=== PATIENT | male | born 1990 | race Caucasian/White ===

== ENCOUNTER 2016-10-24 12:56 | Inpatient (IN) | payer OTHER ==
[~2016-10-24] VITALS: Ht 180.3 cm; Wt 95.3 kg
[2016-10-24] MEDS ORDERED: MAG HYDROX/AL HYDROX/SIMETH 30 ML LIQUID UDC PO PRN (15:30)
[2016-10-24] MEDS ORDERED: BUPRENORPHINE HCL 2 MG TAB.SUBL SL PRN (15:30)
[2016-10-24] MEDS ORDERED: IBUPROFEN 600 MG TABLET PO PRN (15:30)
[2016-10-24] MEDS ORDERED: CLONIDINE HCL 0.1 MG TABLET PO PRN (15:30)
[2016-10-24] MEDS ORDERED: DICYCLOMINE HCL 20 MG TABLET PO PRN (15:30)
[2016-10-24] MEDS ORDERED: ONDANSETRON ODT 4 MG TAB.RAPDIS SL PRN (15:30)
[2016-10-24] MEDS ORDERED: HYDROXYZINE PAMOATE 25 MG CAPSULE PO PRN (15:30)
[2016-10-24] MEDS ORDERED: LORAZEPAM 2 MG/1 ML VIAL IM PRN (15:30)
[2016-10-24] MEDS ORDERED: DIAZEPAM 5 MG TABLET PO PRN (15:30)
[2016-10-24] MEDS ORDERED: ACETAMINOPHEN 325 MG TABLET PO PRN (15:30)
[2016-10-24] MEDS ORDERED: METHOCARBAMOL 750 MG TABLET PO PRN (15:30)
[2016-10-24] MEDS ORDERED: ONDANSETRON 4 MG/2 ML VIAL IM PRN (15:30)
[2016-10-24] MEDS ORDERED: MAGNESIUM HYDROXIDE 30 ML LIQUID UDC PO PRN (15:30)
[2016-10-24] MEDS ORDERED: LOPERAMIDE HCL 2 MG CAPSULE PO PRN ×2 (15:30)
[2016-10-24] MEDS ORDERED: MIRALAX 17 GM POWD.PACK PO PRN (15:30)
[2016-10-24] MEDS ORDERED: DIAZEPAM 10 MG TABLET PO PRN ×2 (15:30)
[2016-10-24 16:00] VITALS: BP 129/86
[2016-10-24 16:46] LABS: *AMPHETAMINE, URINE NEGATIVE (NEGATIVE); *BARBITURATE, URINE NEGATIVE (NEGATIVE); *CANNABINOID, URINE POSITIVE (NEGATIVE); *COCCAINE, URINE POSITIVE (NEGATIVE); *OPIATE, URINE POSITIVE (NEGATIVE); *PHENCYCLIDINE SCREEN,URINE NEGATIVE (NEGATIVE)
[2016-10-24 18:07] LABS: ALANINE AMINOTRANSFERASE 27 U/L (16-63); ALBUMIN 3.9 g/dL (3.4-5.0); ALKALINE PHOSPHATASE 68 U/L (50-136); ASPARTATE AMINOTRANSFERASE 19 U/L (15-37); BILIRUBIN,TOTAL 0.6 mg/dL (0.2-1.0); CALCIUM 8.9 mg/dL (8.5-10.1); CARBON DIOXIDE 25 mmol/L (21-32); CHLORIDE 103 mmol/L (98-107); CREATININE 1.1 mg/dL (0.6-1.3); GFR 82 mL/min (>60); GLUCOSE 118 mg/dL (74-106); MAGNESIUM 1.8 mg/dL (1.8-2.4); POTASSIUM 3.7 mmol/L (3.5-5.1); SODIUM SERUM 140 mmol/L (136-145); TOTAL PROTEIN, SERUM 7.6 g/dL (6.4-8.2); UREA NITROGEN, BLOOD 10 mg/dL (7-18)
[2016-10-24 18:08] LABS: BASOPHILS # (AUTO) 0.1 K/uL (0.0-0.2); BASOPHILS % (AUTO) 0.7 % (0.0-2.0); EOSINOPHILS # (AUTO) 0.1 K/uL (0.0-0.7); EOSINOPHILS % (AUTO) 1.9 % (0.0-7.0); HEMOGLOBIN 15.3 g/dL (14.0-18.0); LYMPHOCYTES # (AUTO) 2.2 K/uL (0.8-4.8); LYMPHOCYTES % (AUTO) 30.3 % (20.5-51.5); MEAN CORPUSCULAR HEMOGLOBIN 29.6 uug (27.0-31.0); MEAN CORPUSCULAR HGB CONC 34 g/dL (32.0-37.0); MEAN CORPUSCULAR VOLUME 87.4 fL (82.0-92.0); MONOCYTES # (AUTO) 0.7 K/uL (0.1-1.30); NEUTROPHILS # (AUTO) 4.2 K/uL (1.8-8.9); NEUTROPHILS % (AUTO) 58.1 % (38.5-71.5); PLATELET COUNT (AUTO) 199 K/uL (150-450); RED BLOOD CELL COUNT(AUTO) 5.15 MIL/uL (4.70-6.10); RED CELL DISTRIBUTION WIDTH 11.3 % (11.5-14.5); WHITE BLOOD COUNT (AUTO) 7.3 K/uL (4.0-11.2)
--- NOTE | 2016-10-24 18:13 | NUR ---
ADMISSION NOTE Pt is a 26 yr old male, AA&Ox4. Pt is presenting himself to [facility] for heroin and Xanax use. Pt was observed with flat affect and avoidant during assessment. Respirations even and unlabored. Lung sounds are clear. Body check was done. Skin is intact, warm and dry to touch. No tremor seen or felt. Pt denies any n/v. Pt did c/o muscle aching, runny nose and was observed yawning 2-3 time during assessment. Pt c/o cold chills. COWS upon admission was 7, CIWA score was 3. VS are WNL. BP 129/86, P 73, R 16, T 98.6, O2 99% at 1600. Pt is full code, regular diet and NKA. Pt denies any PMH and denies taking any home medication. Pt denies any PCP. Pt denies any Hx of Seizures. SUBSTANCE USE: 1. Heroin- Pt stated of first using Heroin at the age of 23 yrs old. Pt states of smoking 8 bags daily for the past 1.5 years. Last use was on 10/23/16, pt states of smoking 1 bag. 2. Xanax - pt stated of first using Xanax 2 months ago and has been using 6mg PO daily. Last use was on 10/23/16, used 2mg PO. 3. Marijuana - Pt states of first smoking marijuana 5 years ago. Pt states of smoking 1g daily for the past 5 years. Last smoked was on 10/23/16, per pt, smoked 1g. Pt's urine drug screen was positive for cocaine. Pt states of not using cocaine. Pt states, "The heroin was probably cut with it". MD is made aware. [place] Hx: Pt states of going to [facility] in January 2015 and was in for 30 days for Opiate use. Pt stated of being sober for 1 yrs then relapsed. Pt was seen and examined by Dr. Spivey with new orders to start on 5 day Subutex and 5 day Valium taper on 10/25/16. Pt was educated on medication regime and plan of care. Pt was oriented around unit and equipment in room. Pt is on fall and seizure precautions. All needs attended and met.
[2016-10-24 18:18] LABS: ETHANOL < 3 MG/DL (0-0)
[2016-10-24 18:46] LABS: HIV-1 p24 ANTIGEN NON REACTIVE (NONREACTIVE); HIV-1/2 ANTIBODY NON REACTIVE (NONREACTIVE)
[2016-10-24 18:47] LABS: THYROID STIMULATING HORMONE 0.396 mIU/mL (0.358-3.740)
[2016-10-24] MEDS ORDERED: BUPR1FIL SL (19:22)
--- NOTE | 2016-10-24 19:30 | NUR ---
START OF SHIFT Patient endorsed by day shift nurse. SBAR report received. Patient is 26 years old male admitted to [facility] on 10/24/16 for Benzo(Xanax PO) and Opioid(Heroin smoke) Dependence., placed on 5 day Subutex and 5 day Valium Taper that will initiated on 10/25/16. Patient is alert and oriented x4, cooperative. COWS 12. CIWA 9: Patient presents with obviously moderate objective signs of opioid withdrawal: appears anxious, nervousness, agitated, c/o bone and joint aching, sweating, "goose" skin, stomach cramping, nausea. Patient denied vomiting and diarrhea. Patient has tremors, that can felt. VS: T:98'6; HR:68; BP:119/79; Room Air O2Sat:98%; RR: 20. Generalized Pain level: 7/10. Breathing is even and unlabored. Patient denied SOB and chest pain. Lungs are clear bilaterally. Bowel Sounds is active in all x4 quadrants. Abdomen is soft and non-distended. Skin is intact, warm, and moist by touch. Patient remained compliant with medication, diet regime, and treatment plan. Patient will discharging 10/25/2016 at 0930. UDS test results placed in the chart. Safety measures on the place by hospital protocol: Call light within reach, bed in the lowest position and locked, bed rails up x2. Will continue to monitor.
[2016-10-24 20:00] VITALS: BP 119/79
[2016-10-24] MEDS ORDERED: DIAZEPAM 10 MG TABLET PO SCH (21:00)
[2016-10-24] MEDS: GABAPENTIN 300 MG CAPSULE PO SCH (21:27)
--- NOTE | 2016-10-24 21:35 | NUR ---
PRN SUBUTEX PO ADMINISTRATION Patient c/o increased anxiety.Upon assessment COWS 12: Patient presents with obviously moderate objective signs of opioid withdrawal appear anxious, nervousness, agitated, tremors, that can felt, bone and joint aching, sweating, "goose" skin, stomach cramping, nausea. Patient denied vomiting and diarrhea.VS: T:98'6; HR:68; BP:119/79; Room Air O2Sat:98%; RR: 20. Generalized Pain level: 7/10. PRN Subutex SL discussed with patient. Patient's educated for actions, adverse reactions, and side effects of the Subutex. Proper administration technique demonstrated to patient. Patient returned his knowledge back by verbalizing understanding. PRN Subutex SL was administrated as ordered. Patient tolerated well. Will re-evaluate in 1 hour. Safety measure in the place by hospital policy: Call light within reach; Bed locked and in the lowest position; bed rails up x2. Will continue to monitor closely.
[2016-10-24] MEDS: diphenhydrAMINE 50 MG CAPSULE PO PRN (22:20)
--- NOTE | 2016-10-24 22:20 | NUR ---
PRN BENADRYL ADMINISTRATION Patient c/o insomnia and asked for sleep aid. Patient's assessed. VS WNL. PRN Benadryl PO discussed with patient. Patient educated for actions, adverse reactions, and side effects of Benadryl. Patient returned his knowledge back by verbalizing understanding. PRN Benadryl was administrated as ordered with full glass of water. Patient tolerated well. All needs met. Safety measures in the place by hospital policy: call light within reach, bed in the lowest position and locked, bed rails up x2. Will re-evaluating patient in 1 hour.
--- NOTE | 2016-10-24 22:35 | NUR ---
RE-ASSESSMENT Patient's re-assessed. Patient said that"Subutex helps a lot", an he is feeling"much better now". COWS 9: patient feeling mild anxiety, denied N/V, and diarrhea, tremors that can felt, sweating, bone and joint aching decreased from 7/10 to 4/10, headache decreased from 7/10 to 3/10. RR: 17: Breathing unlabored and even. PRN Subutex was effective. Will continue to monitor closely. All needs met by hospital policy. Addendum: 10/25/16 at 0039 by SANDRA BOYKIN RN and
--- NOTE | 2016-10-24 23:20 | NUR ---
RE-ASSESSMENT Patient lying down in his bed, and "trying to sleep". Benadryl is not effective at this time.
[2016-10-25] VITALS: BP 127/79
[2016-10-25 04:00] VITALS: BP 120/76
--- NOTE | 2016-10-25 07:22 | NUR ---
END OF SHIFT NOTE Patient is a 21 years old male, admitted to [facility] on 10/24/2016 Benzo(Xanax PO) and Opioid (Heroin smoke) Dependence, placed on 5 day Subutex and 5 day Valium Taper that will initiated on 10/25/16. No SI/HI. CIWA decreased from " 9" on 10/24/16 at 20:00 to" 6" on 10/25/16 at 0400; COWS decreased from "12" on 10/24/16 at 20:00 to" 5" on 10/25/16 at 04:00 Patient presents with obviously moderate objective signs of opioid withdrawal: appears anxious, nervousness, agitated, c/o bone and joint aching, sweating, "goose" skin, stomach cramping, nausea. Patient denied vomiting and diarrhea. Patient has tremors, that can felt. VS WNL. PRN Subutex PO and PRN Benadryl PO were effective. Patient remained compliant with medications, diet regime, and treatment plan. Patient slept 6 hours; Intake 651ml, output x1. Safety measures on the place by hospital protocol: Call light within reach, bed in the lowest position and locked, bed rails up x2. Patient endorsed to day shift nurse in stable condition. SBAR Report given.
--- NOTE | 2016-10-25 07:40 | NUR ---
START OF SHIFT Pt is a 26 yr old male, AA&Ox3. Pt was admitted on 10/24/16 for Opiate/Benzo Dependence and is to start on 5 day Valium and 5 day Subutex taper as ordered. Pt denies any PMH. Pt is full code regular diet and NKA. Pt received Subutex PRN during the night. Medication was effective. Last COWS score was 5 and CIWA score was 4 at 0400. Pt remains in bed resting with respirations even and unlabored. No acute distress noted. Skin is intact, warm and dry to touch. No tremors seen or felt. Pt denies any n/v at this time. Pt is c/o generalized muscle aching. Encouraged increase fluid intake. Will f/u with eMAR. Safety precautions observed. Call light is within reach. Will continue to monitor.
[2016-10-25 08:00] VITALS: BP 102/51
[2016-10-25] MEDS ORDERED: 5 DAY TAPER VALIUM-SERENITY PROTOCOL PO PRN (09:00)
[2016-10-25] MEDS ORDERED: TUBERCULIN,PURIF.PROT.DERIV. 5 TU/0.1 ML TEST ID ONE (09:00)
[2016-10-25] MEDS ORDERED: 5 DAY TAPER BUPRENORPHINE -SERENITY PROTOCOL SL PRN (09:00)
[2016-10-25] MEDS: MULTIVITAMINS,THERAPEUTIC TABLET PO SCH (09:20)
[2016-10-25] MEDS: DIAZEPAM 10 MG TABLET PO SCH ×4 (09:20→21:17)
[2016-10-25] MEDS: GABAPENTIN 300 MG CAPSULE PO SCH ×2 (09:20→21:17)
[2016-10-25] MEDS: BUPRENORPHINE HCL 2 MG TAB.SUBL SL SCH ×4 (09:20→21:18)
[2016-10-25 12:00] VITALS: BP 119/75
--- NOTE | 2016-10-25 13:07 | NUR ---
MEDICATION REFUSED Pt refused to take Subutex 4mg SL at 1300 as scheduled. Pt was educated on medication regime. Pt was able to verbalize understanding but continued to refuse. MD is made aware.
[2016-10-25 16:00] VITALS: BP 130/76
--- NOTE | 2016-10-25 18:30 | NUR ---
END OF SHIFT Pt is a 26 yr old male, AA&Ox3. Pt was admitted on 10/24/16 for Opiate/Benzo Dependence and is to start on 5 day Valium and 5 day Subutex taper as ordered. Medication isidro well. Pt refused to take Subutex 4mg SL at 1200. Pt stated, "The dose is too much". Pt was requesting to decrease the taper. Dr. Spivey was made aware and will f/u. No PRN's were given during the day. Pt has been observed with anxiety m/b difficulty staying still. Skin is intact, warm and dry to touch. No tremors seen or felt. Pt denies any n/v at this time. Pt denies any pain or discomfort. Encouraged increase fluid intake. Last COWS score was 5, CIWA score was 4 at 1600. Safety precautions observed. Call light is within reach.
[2016-10-25 20:00] VITALS: BP 129/81
--- NOTE | 2016-10-25 20:00 | NUR ---
START OF SHIFT NOTE PATIENT PRESENTS IN FLAT AFFECT MOOD. ALERT AND ORIENTED X 4. RESPIRATION EVEN AND UNLABORED. PATIENT REPORTS ANXIETY, SWEATING. NOTED RESTLESS , YAWNING, NO N/V. AND MUSCLE ACHES. PATIENT IS A 26 YEAR OLD MALE, ADMITTED FOR OPIATE/BENZO DEPENDENCE. PATIENT IS ON 2ND DAY OF HIS 5 DAY SUBUTEX AND 5 DAY VALIUM TAPER. PATIENT IS FULL CODE, REGULAR DIET AND NO KNOWN ALLERGY. PER DAY SHIFT NURSE, PATIENT REFUSED SUBUTEX AT 1200 DOSE. PATIENT DID NOT REQUIRE ANY PRN MEDICATION. LAST COWS 5 AND CIWA 4. VS STABLE . ON FALL /SEIZURE PRECAUTION. SAFETY MEASURES IN PLACE. CALL LIGHT IN REACH. WILL CONTINUE TO MONITOR.
[2016-10-25] MEDS: diphenhydrAMINE 50 MG CAPSULE PO PRN (21:17)
--- NOTE | 2016-10-25 21:17 | NUR ---
PRN BENADRYL RE-ASSESSMENT PATIENT REQUESTS FOR SLEEP AID. PRN BENADRYL GIVEN. WILL MONITOR FOR EFFECTIVENESS
[2016-10-26] VITALS: BP 113/61
--- NOTE | 2016-10-26 07:29 | NUR ---
END OF SHIFT NOTE PATIENT ALERT AND ORIENTED X 4. RESPIRATION EVEN AND UNLABORED. PATIENT C/O OF ANXIETY, SWEATING, NOTED RESTLESS, YAWNING , TREMORS. PATIENT PRESENTS WITH FLAT MOOD AFFECT. PATIENT IS A 26 YEAR OLD MALE, ADMITTED FOR OPIATE/BENZO DEPENDENCE. PATIENT IS ON 2ND DAY OF HIS 5 DAY SUBUTEX AND 5 DAY VALIUM TAPER. PATIENT IS FULL CODE, REGULAR DIET AND NO KNOWN ALLERGY. . PATIENT COMPLIANT WITH ALL MEDICATIONS AND TREATMENT PLAN . PATIENT DID NOT REQUIRE ANY PRN MEDICATION DURING SHIFT. ON FALL /SEIZURE PRECAUTION. SAFETY MEASURES IN PLACE. CALL LIGHT IN REACH. WILL CONTINUE TO MONITOR. SLEPT 6 HOURS . FLUID INTAKE 591 ML. VOIDED X 2. NO BM. LAST COWS 2 AND CIWA 2.
--- NOTE | 2016-10-26 07:46 | NUR ---
BEGINNING OF SHIFT Patient endorsement report received from lieutenant shift supervisor nurse, all pertinent information discussed. patient is a 26 year old male, full code, regular diet with no known allergies. Patient admitted on 10/24/2016, with admitting Dx: opiate/BZO dependence. Patient denies past medical history. Reports substance use of: heroin 8 bags daily for 1.5 years, Xanax 6mg daily for 2 months, marijuana 1 gram daily for 5 years. Patient currently with ongoing 5 day Subutex and 5 day Valium taper and is currently scheduled to begin day 2. Patients skin is intact. As per lieutenant shift supervisor report patient received PRN: Benadryl, medication effective as per lieutenant shift supervisor, patient slept for 6 hours. last cow score of: 2, and last ciwa score of: 2. Patient received awake, alert and oriented x4, patient educated regarding plan of care for the day, and will provide education regarding discharge. safety measures in place. call light with in reach, will continue to monitor closely.
[2016-10-26] MEDS ORDERED: BUPRENORPHINE HCL 2 MG TAB.SUBL SL SCH (09:00)
[2016-10-26] MEDS ORDERED: DIAZEPAM 10 MG TABLET PO SCH (09:00)
[2016-10-26 09:29] VITALS: BP 122/68
[2016-10-26] MEDS: BUPRENORPHINE HCL 2 MG TAB.SUBL SL SCH ×4 (09:31→20:35)
[2016-10-26] MEDS: GABAPENTIN 300 MG CAPSULE PO SCH ×3 (09:31→20:35)
[2016-10-26] MEDS: MULTIVITAMINS,THERAPEUTIC TABLET PO SCH (09:31)
[2016-10-26 12:08] LABS: HCV AB <0.1 s/co ratio (0.0-0.9); HEPATITIS B CORE AB, IgM Negative (Negative); HEPATITIS B SURFACE AG Negative (Negative)
[2016-10-26 12:41] VITALS: BP 142/86
[2016-10-26] MEDS ORDERED: DIAZEPAM 5 MG TABLET PO SCH (13:00)
--- NOTE | 2016-10-26 13:49 | NUR ---
REFUSED SUBUTEX Patient awake alert and oriented x4, 1300 assessment patient presented with: c/o chills, mild anxiety, mild agtiation and goosebumps with cow score of: 5 patient scheduled to receive dose of Subutex, as ordered. patient refused administration of Subutex 2 mg sl, patient explained risk vs benefits of refusing detox medication with good verbal understanding. MD notified, will continue to monitor.
[2016-10-26] MEDS: DIAZEPAM 5 MG TABLET PO SCH ×2 (14:50→20:35)
[2016-10-26 17:04] VITALS: BP 139/80
--- NOTE | 2016-10-26 18:45 | NUR ---
END OF SHIFT Patient alert and oriented x4, Patients vital signs were with in normal limits during shift. Patient with admitting Dx: opiate/bzo dependence and continues on Subutex and Valium taper as ordered. Patient is currently on day 2 of taper, well tolerated, no ASE noted. 0900 assessment patient presented with: mild bone and joint aches, observable moist, anxiety, goosebump and mild agitation with cow score of: 8 and ciwa score of: 7; 1300 assessment patient presented with: c/o chills, mild anxiety, goosebumps, and mild agitation with cow score of: 5 and ciwa score of: 2; 1500 assessment patient presented with increase in anxiety and mild agitation with ciwa score of: 5; 1700 assessment patient presented with, c/o chills, mild anxiety/agitation and mild bone and joint aches with cow score of: 3 and ciwa score of: 2. Patient refused 1300 dose of Subutex despite explanation of risk vs benefits of refusing detox medications. MD was notified. Patient encouraged adequate PO fluid intake as tolerated. Encouraged to attend group therapies/sessions to learn new coping skills to prevent relapse, patient noted attending and participating. Denies SI/HI. Safety measures in place. call light kept with in reach, will continue to monitor closely. Patient endorsed to date night caregiver nurse, all pertinent information discussed.
[2016-10-26 20:00] VITALS: BP 126/92
--- NOTE | 2016-10-26 20:00 | NUR ---
START OF SHIFT NOTE PATIENT IN ROOM. ALERT AND ORIENTED X 4. RESPIRATION EVEN AND UNLABORED. PATIENT C/O ANXIETY BUT MEDICATION IS WORKING WELL IN CONTROLLING HIS WITHDRAWAL SYPTOMS. SWEATING. NO N/V. RECEIVED REPORT FROM DAY SHIFT NURSE. PATIENT IS ON 2ND DAY OF HIS 5 DAY SUBUTEX AND 5 DAY VALIUM TAPER FOR OPIATE/ BENZO DEPENDENCE. PATIENT DID NOT REQUIRE ANY PRN MEDICATION DURING THE DAY . LAST COWS 3 AND CIWA 2. PER DAY SHIFT NURSE , HE REFUSED SUBUTEX AT 1300 DOSE. EDUCATED ON RISKS/BENEFITS. PATIENT ATTENDING AND PRTICIPATING IN GROUPS. SKIN INTACT. ON FALL/SEIZURE PRECAUTION. SAFETY MEASURES IN PLACE. CALL LIGHT IN REACH. WILL CONTINUE TO MONITOR.
[2016-10-26] MEDS: TRAZODONE 50 MG TABLET PO SCH (20:35)
[2016-10-27] VITALS: BP 97/59
[2016-10-27 04:00] VITALS: BP 107/72
--- NOTE | 2016-10-27 07:29 | NUR ---
END OF SHIFT NOTE PATIENT ALERT AND ORIENTED X 4. RESPIRATION EVEN AND UNLABORED. PATIENT C/O ANXIETY BUT MEDICATION IS WORKING WELL IN CONTROLLING HIS WITHDRAWAL SYMPTOMS. SWEATING. NO N/V.PATIENT IS ON 2ND DAY OF HIS 5 DAY SUBUTEX AND 5 DAY VALIUM TAPER FOR OPIATE/ BENZO DEPENDENCE.PATIENT IS ATTENDING AND PARTICIPATING IN GROUPS. COMPLIANT WITH MEDICATIONS AND TREATMENT PLAN. PATIENT DID NOT REQUIRE ANY PRN MEDICATION DURING THE DAY. LAST CIWA 1 AND COWS 1. SKIN INTACT. ON FALL/SEIZURE PRECAUTION. SAFETY MEASURES IN PLACE. CALL LIGHT IN REACH. WILL CONTINUE TO MONITOR. SLEPT 6 HOURS. FLUID INTAKE 1,350 ML. VOIDED X 2. NO BM.
--- NOTE | 2016-10-27 07:37 | NUR ---
BEGINNING OF SHIFT Patient endorsement report received from poultry raiser nurse, all pertinent information discussed. patient is a 26 year old male, full code, regular diet with no known allergies. Patient admitted on 10/24/2016, with admitting Dx: opiate/BZO dependence. Patient denies past medical history. Reports substance use of: heroin 8 bags daily for 1.5 years, Xanax 6mg daily for 2 months, marijuana 1 gram daily for 5 years. Patient currently with ongoing 5 day Subutex and 5 day Valium taper and is currently scheduled to begin day 3. Patients skin is intact. As per poultry raiser report patient received No PRNs, patient slept for 6 hours. last cow score of: 1, and last ciwa score of: 1. Patient received awake, alert and oriented x4, patient educated regarding plan of care for the day, and will provide education regarding discharge. safety measures in place. call light with in reach, will continue to monitor closely.
[2016-10-27] MEDS ORDERED: DIAZEPAM 5 MG TABLET PO SCH (09:00)
[2016-10-27] MEDS ORDERED: BUPRENORPHINE HCL 2 MG TAB.SUBL SL SCH ×2 (09:00→15:00)
[2016-10-27 09:08] VITALS: BP 94/69
[2016-10-27] MEDS: DIAZEPAM 5 MG TABLET PO SCH ×3 (09:09→22:01)
[2016-10-27] MEDS: BUPRENORPHINE HCL 2 MG TAB.SUBL SL SCH ×3 (09:09→22:01)
[2016-10-27] MEDS: GABAPENTIN 300 MG CAPSULE PO SCH ×3 (09:10→22:01)
[2016-10-27] MEDS: MULTIVITAMINS,THERAPEUTIC TABLET PO SCH (09:10)
[2016-10-27 14:10] VITALS: BP 121/71
[2016-10-27] MEDS: BACLOFEN 10 MG TABLET PO SCH ×2 (14:33→22:02)
--- NOTE | 2016-10-27 16:00 | NUR ---
REFUSED SUBUTEX Patient awake alert and oriented x4, 1400 assessment patient presented with: heart rate of 83, c/o chills, stuffy nose, anxiety, barely sweating, with ciwa score of: 4 and cow score of: 5. patient scheduled to receive dose of Subutex, as ordered. patient refused administration of Subutex 2 mg sl, patient explained risk vs benefits of refusing detox medication with good verbal understanding. MD notified, will continue to monitor.
[2016-10-27] MEDS: LIDOCAINE 5% PATCH TD SCH (16:01)
[2016-10-27 17:34] VITALS: BP 116/90
--- NOTE | 2016-10-27 18:54 | NUR ---
END OF SHIFT Patient alert and oriented x4, Patients vital signs were with in normal limits during shift. Patient with admitting Dx: opiate/bzo dependence and continues on Subutex and Valium taper as ordered. Patient is currently on day 3 of taper, well tolerated, no ASE noted. 0900 assessment patient presented with c/o chills, mild bone and joint aches, stuffy nose, anxiety, yawning and barely sweating with cow score of: 6 and ciwa score of: 4; 1300 assessment patient presented with: heart rate of 83, c/o chills, stuffy nose, anxiety and barely sweating with cow score of: 5 and ciwa score of: 4. 1700 assessment: heart rate of 88, c/o chills, stuffy nose, anxiety and barely sweating with cow score of: 5 and ciwa score of: 4. Patient refused 1500 dose of Subutex despite explanation of risk vs benefits of refusing detox medications. MD was notified. Patient encouraged adequate PO fluid intake as tolerated. Encouraged to attend group therapies/sessions to learn new coping skills to prevent relapse, patient noted attending and participating. Denies SI/HI. Safety measures in place. call light kept with in reach, will continue to monitor closely. Patient endorsed to warehouse supervisor 3rd shift nurse, all pertinent information discussed.
[2016-10-27 20:00] VITALS: BP 118/83
--- NOTE | 2016-10-27 20:00 | NUR ---
START OF SHIFT NOTE Pt is a 26 y/o male admitted for Heroin, Xanax, and Marijuana dependence and use. Pt has NKA and denies any PMH. Per day shift nurse pt was placed on a 5 day Subutex and 5 day Valium taper ( day 3 ) and is tolerating medication well with no s/e or a/r reported. Pt didn't receive any PRNS during the day shift. Last COW: 5 CIWA:4 (1600). At this time pt is calm , cooperative and compliant with plan of care. Pt is currently waiting for staff to assist him to the smoking area. Pt denies any pain/discomfort. Pt stated " I'm alright right now." Pt was encouraged to notify staff of any changes in condition or of any concerns. Pt verbalized an understanding. Will continue to monitor.
--- NOTE | 2016-10-27 22:01 | NUR ---
MOTRIN PRN ADMINISTRATION Pt stated " I'm having back pain 11/28. Can I get something for that?" Motrin 600 mg PO PRN was given. Pt was encouraged to notify staff of any changes in condition or of any further concerns. Pt verbalized an understanding. All safety measures in place. Will monitor for effectiveness.
[2016-10-27] MEDS: TRAZODONE 50 MG TABLET PO SCH (22:02)
--- NOTE | 2016-10-27 23:00 | NUR ---
DIANDRA PRN REASSESSMENT Pt stated "My back feels better. It's like a 2/ now." PRN effective. All safety measures in place. Will continue to monitor.
[2016-10-28] VITALS: BP 123/84
[2016-10-28] MEDS: diphenhydrAMINE 50 MG CAPSULE PO PRN
--- NOTE | 2016-10-28 | NUR ---
BENADRYL PRN ADMINISTRATION Pt stated " I can't sleep. I've tried and I'm just restless. Can I have Benadryl?" Benadryl 50 mg PO PRN was given. Pt was encouraged to notify staff of any changes in condition or of any further concerns. Pt verbalized an understanding. All safety measures in place. Will monitor for effectiveness.
--- NOTE | 2016-10-28 01:00 | NUR ---
BENADRYL PRN REASSESSMENT Pt is asleep in bed with no signs of discomfort/distress noted. Respirations are 16 breaths per minute. PRN effective. Will continue to monitor.
--- NOTE | 2016-10-28 04:00 | NUR ---
COW, CIWA, AND VITALS REFUSED Pt refused to be assessed and have vitals taken at this time. Pt was encouraged x 3 with risks and benefits explained, but the pt still declined. All safety measures in place. Will continue to monitor. Addendum: 10/28/16 at 0541 by PRANEETH HUTTON LVN Amended: Links added.
--- NOTE | 2016-10-28 07:30 | NUR ---
BEGINNING OF SHIFT Patient endorsement report received from date night sitter nurse, all pertinent information discussed. patient is a 26 year old male, full code, regular diet with no known allergies. Patient admitted on 10/24/2016, with admitting Dx: opiate/BZO dependence. Patient denies past medical history. Reports substance use of: heroin 8 bags daily for 1.5 years, Xanax 6mg daily for 2 months, marijuana 1 gram daily for 5 years. Patient currently with ongoing 5 day Subutex and 5 day Valium taper and is currently scheduled to begin day 4 of taper. Patients skin is intact. As per date night sitter report patient received PRN: benadryl, effective as per date night sitter patient slept for 6 hours. last cow score of: 1, and last ciwa score of: 0. Patient received awake, alert and oriented x4, patient educated regarding plan of care for the day, and will provide education regarding discharge. safety measures in place. call light with in reach, will continue to monitor closely.
--- NOTE | 2016-10-28 08:05 | NUR ---
END OF SHIFT NOTE Pt is a 26 y/o male admitted for Heroin, Xanax, and Marijuana dependence and use. Pt has NKA and denies any PMH. Pt was placed on a 5 day Subutex and 5 day Valium taper ( day 4 ) and is tolerating medication well with no s/e or a/r reported. Pt received Motrin 600 mg PO PRN and Benadryl 50 mg PO PRN during the shift. Last COW: 1 CIWA:0 (0000).Pt slept for a total of 6 hours. Endorsed to the oncoming nurse.
[2016-10-28 08:19] VITALS: BP 101/60
[2016-10-28] MEDS ORDERED: DIAZEPAM 5 MG TABLET PO SCH ×3 (09:00)
[2016-10-28] MEDS ORDERED: BUPRENORPHINE HCL 2 MG TAB.SUBL SL SCH ×3 (09:00)
[2016-10-28] MEDS: MULTIVITAMINS,THERAPEUTIC TABLET PO SCH (09:37)
[2016-10-28] MEDS: GABAPENTIN 300 MG CAPSULE PO SCH ×3 (09:37→22:09)
[2016-10-28] MEDS: BACLOFEN 10 MG TABLET PO SCH ×3 (09:37→22:10)
[2016-10-28] MEDS: LIDOCAINE 5% PATCH TD SCH (09:39)
[2016-10-28 12:00] VITALS: BP 134/76
[2016-10-28 15:05] LABS: *AMPHETAMINE, URINE NEGATIVE (NEGATIVE); *BARBITURATE, URINE NEGATIVE (NEGATIVE); *CANNABINOID, URINE POSITIVE (NEGATIVE); *COCCAINE, URINE NEGATIVE (NEGATIVE); *OPIATE, URINE NEGATIVE (NEGATIVE); *PHENCYCLIDINE SCREEN,URINE NEGATIVE (NEGATIVE)
[2016-10-28 16:00] VITALS: BP 110/83
--- NOTE | 2016-10-28 19:21 | NUR ---
End of shift note pt is was admitted for opiate and benzo dependence. Pt is a full code, regular diet with no known allergies. Patient denies any PMH. Pt has successfully completed a subutex and valium taper without any ASE. Pt states that he feels ready for discharge. Pt has no complaints at this time. All needs addressed. SBAR endorsed to oncoming shift.
--- NOTE | 2016-10-28 19:30 | NUR ---
Start of Shift Note: Report received from day shift nurse. Pt is a 26M, admitted for Opiate/Benzodiazepine Dependence on 10/24/16. Pt attended H&I panel upon start of shift. Pt is AOx4 without s/s of acute distress. Pt is full code, on regular diet, and on fall/seizure precautions. Pt denies any PMH. Pt has completed Subutex and Valium taper to manage withdrawal symptoms. Pt is scheduled to leave tomorrow. Pt's last COWS was 2 and CIWA was 2 at 1600. Bed in lowest position. Side rails up x2. Call light functioning and within reach. All needs attended and met. Will continue to monitor.
--- NOTE | 2016-10-28 19:57 | NUR ---
PRN Milk of Magnesia: Pt stated that he is having constipation. PRN Milk of Magnesia given as ordered. Will continue to monitor.
[2016-10-28 20:00] VITALS: BP 132/75
[2016-10-28] MEDS ORDERED: Baclofen PO (20:57)
[2016-10-28] MEDS ORDERED: Ibuprofen PO (20:57)
[2016-10-28] MEDS ORDERED: HYDR-3895 PO (20:57)
[2016-10-28] MEDS ORDERED: Gabapentin PO ×2 (20:57)
[2016-10-28] MEDS ORDERED: DICY20TA28 PO (20:57)
[2016-10-28] MEDS ORDERED: LIDO30AD10 TD (20:57)
[2016-10-28] MEDS ORDERED: TRAZ-144 PO (20:58)
[2016-10-28] MEDS: TRAZODONE 50 MG TABLET PO SCH (23:50)
[2016-10-29] VITALS: BP 113/72
--- NOTE | 2016-10-29 00:20 | NUR ---
Benadryl PRN: Pt stated being unable to sleep. Benadryl PRN given as ordered. Will continue to monitor.
[2016-10-29] MEDS: diphenhydrAMINE 50 MG CAPSULE PO PRN (00:22)
[2016-10-29 04:00] VITALS: BP 120/76
--- NOTE | 2016-10-29 07:23 | NUR ---
End of Shift Note: Pt is 26M, admitted for for Opiate/Benzodiazepine Dependence on 10/24/16. Pt is AOx4 without s/s of acute distress noted. Pt is full code, on regular diet, and on fall/seizure precautions. Pt noted with NKA. Pt denies any PMH. Pt completed Subutex and Valium taper to manage withdrawal symptoms. Pt is compliant with plan of care. Pt slept for 5 hours. Respirations even and unlabored. Last COWS score was 0 and last CIWA score was 0 at 0400. Pt reported constipation and inability to sleep. PRN Milk of Magnesia and PRN Benadryl given and were effective. No N/V noted during the shift. Fall and Sz precautions observed. Bed in lowest position. Side rails up x2. Call light functioning and within reach. All needs attended and met. Will endorse to day shift nurse.
--- NOTE | 2016-10-29 07:25 | NUR ---
Start of shift note Pt was admitted for for Opiate/Benzod Dependence. Pt is full code, on regular diet, and on fall/seizure precautions, and has NKA. Pt denies any PMH. Pt completed Subutex and Valium taper to manage withdrawal symptoms without any ASE. Pt is scheduled to discharge today. All needs addressed at this time. Will continue to monitor pt.
[2016-10-29] MEDS: GABAPENTIN 300 MG CAPSULE PO SCH (08:50)
[2016-10-29] MEDS: MULTIVITAMINS,THERAPEUTIC TABLET PO SCH (08:50)
[2016-10-29] MEDS: BACLOFEN 10 MG TABLET PO SCH (08:50)
[2016-10-29] MEDS: LIDOCAINE 5% PATCH TD SCH (08:51)
[2016-10-29] MEDS ORDERED: BUPRENORPHINE HCL 2 MG TAB.SUBL SL SCH (09:00)
[2016-10-29] MEDS ORDERED: DIAZEPAM 5 MG TABLET PO SCH (09:00)
--- NOTE | 2016-10-29 12:10 | NUR ---
Discharge note Pt was admitted for opiate and benzo dependence. Pt COWS and CIWA are 2. Pt refused 0800 and 1200 vitals, however prior VS were WNL. No s/s of acute distress noted. Pt LBM was 10/29/16. Pt denies SI/HI. Pt verbalized his understanding of the discharge instructions. Pt states that he feels ready for discharge. . Pt discharge instructions, prescriptions, and belongings all returned to pt. Pt ID band removed, pt ambulated off of unit with [facility], left facility via [facility] for [facility].
== END 2016-10-29 12:15 | disposition home or self-care (01) | DRG 895 ==
LOC: SRC 14:57
PROVIDERS: ADMIT Internal Medicine; ATTEND Internal Medicine
PROC: HZ2ZZZZ Detoxification Services for Substance Abuse Treatment (ICD-10-PCS; principal; 2016-10-24)
PROC: HZ31ZZZ Individual Counseling for Substance Abuse Treatment, Behavioral (ICD-10-PCS; 2016-10-26)
PROC: HZ41ZZZ Group Counseling for Substance Abuse Treatment, Behavioral (ICD-10-PCS; 2016-10-27)
DX: F11.23 Opioid dependence with withdrawal (principal); Z81.1 Family history of alcohol abuse and dependence; F41.9 Anxiety disorder, unspecified; G47.00 Insomnia, unspecified; F17.210 Nicotine dependence, cigarettes, uncomplicated; F13.230 Sedative, hypnotic or anxiolytic dependence with withdrawal, uncomplicated; R73.9 Hyperglycemia, unspecified; F14.90 Cocaine use, unspecified, uncomplicated; F12.90 Cannabis use, unspecified, uncomplicated
CPT/HCPCS: 36415; 70030-TC; 80307; 80346; 80349; 80353; 80361; 83735; 84443; 85025; 86580; 86592; 86705; 86803; 87340; 87806; A4663; G6040-TC; Q0163